=== PATIENT | male | born 1965 | race African-American/Black ===

== ENCOUNTER 2019-07-07 19:35 | Inpatient (IN) | payer OTHER ==
[~2019-07-07] VITALS: Ht 180.3 cm; Wt 82.0 kg
[2019-07-07] MEDS ORDERED: OLAN5TAB2 PO (19:49)
[2019-07-07] MEDS ORDERED: VENL25TA47 PO (19:49)
[2019-07-07] MEDS ORDERED: LITH300C3 PO (19:49)
[2019-07-07] MEDS ORDERED: RANI150T7 PO (19:49)
[2019-07-07] MEDS ORDERED: VENL-68 PO (19:50)
[2019-07-07] MEDS ORDERED: ONDANSETRON HCL 4 MG/2 ML VIAL IVP ONE ×2 (20:45→23:45)
[2019-07-07] MEDS ORDERED: SODIUM CHLORIDE 0.9% 1,000 ML IV ONE ×2 (20:45→23:45)
[2019-07-07 21:35] LABS: BASOPHILS % (AUTO) 0.4 % (0.0-2.0); EOSINOPHILS % (AUTO) 0.3 % (1.0-6.0); HEMATOCRIT 47.3 % (41-53); HEMOGLOBIN 16.4 g/dL (13.5-17.5); LYMPHOCYTES # (AUTO) 1.9 K/uL (1.0-4.8); LYMPHOCYTES % (AUTO) 14.4 % (22.0-44.0); MEAN CORPUSCULAR HEMOGLOBIN 31.1 pg (26.0-34.0); MEAN CORPUSCULAR HGB CONC 34.7 G/dL (31.0-37.0); MEAN CORPUSCULAR VOLUME 90 fL (80-100); MONOCYTES # (AUTO) 1.3 K/uL (0.1-1.0); MONOCYTES % (AUTO) 9.7 % (2.0-9.0); NEUTROPHILS # (AUTO) 9.9 K/uL (1.8-7.7); NEUTROPHILS % (AUTO) 75.2 % (40.0-70.0); PLATELET COUNT (AUTO) 210 K/uL (150-450); RED BLOOD CELL COUNT(AUTO) 5.27 MIL/uL (4.50-5.90); RED CELL DISTRIBUTION WIDTH 13.7 % (11.5-14.5)
[2019-07-07 22:14] LABS: SODIUM SERUM 135 mmol/L (136-145)
[2019-07-07 22:15] LABS: ALANINE AMINOTRANSFERASE 24 U/L (12-78); ALBUMIN 4.6 g/dL (3.4-5.0); ALKALINE PHOSPHATASE 106 U/L (46-116); ANION GAP 14 mmol/L (8-16); ASPARTATE AMINOTRANSFERASE 31 U/L (15-37); BILIRUBIN,TOTAL 1.4 mg/dL (0.1-1.0); CALCIUM, TOTAL 10.4 mg/dL (8.8-10.5); CARBON DIOXIDE 27 mmol/L (22-29); CHLORIDE 94 mmol/L (98-107); CREATINE KINASE, TOTAL ONLY 1140 U/L (39-308); CREATININE 1.42 mg/dL (0.60-1.30); GLOMERULAR FILTR. RATE CALC > 60 mL/min (>60); GLUCOSE,RANDOM 120 mg/dL (70-110); TOTAL PROTEIN, SERUM 7.9 g/dL (6.4-8.2); UREA NITROGEN, BLOOD 21 mg/dL (7-18)
[2019-07-07 22:18] LABS: POTASSIUM 2.8 mmol/L (3.5-5.1)
[2019-07-07] MEDS ORDERED: POTASSIUM CHLORIDE 10% 40 MEQ/30 ML LIQUID UDCUP PO ONE (22:30)
[2019-07-07] MEDS: POTASSIUM CHL 10 MEQ/WATER 50 ML IV SCH ×2 (23:06→23:32)
[2019-07-08 01:20] LABS: AMPHET/METH SCREEN,URINE POSITIVE (NEGATIVE); BARBITURATE SCREEN, URINE NEGATIVE (NEGATIVE); BENZODIAZEPINES SCREEN,URINE NEGATIVE (NEGATIVE); CANNABINOID SCREEN,URINE POSITIVE (NEGATIVE); COCAINE SCREEN,URINE NEGATIVE (NEGATIVE); METHADONE SCREEN, URINE NEGATIVE (NEGATIVE); OPIATE SCREEN,URINE NEGATIVE (NEGATIVE)
[2019-07-08 01:21] LABS: APPEARANCE,URINE CLEAR (CLEAR); BILIRUBIN,URINE NEGATIVE (NEGATIVE); GLUCOSE, URINE (UA) NEGATIVE (NEGATIVE); KETONES,URINE >=80 mg/dL (NEGATIVE); LEUKOCYTE ESTERASE ,URINE NEGATIVE (NEGATIVE); NITRATE,URINE NEGATIVE (NEGATIVE); OCCULT BLOOD,URINE MODERATE (NEGATIVE); PH,URINE 7.5 (5.0-8.0); PROTEIN,URINE POS 1+ (NEGATIVE)
[2019-07-08 01:22] LABS: BACTERIA,URINE None Seen /HPF (None Seen); RBC,URINE 26-50 /HPF (0-2)
[2019-07-08 01:23] LABS: SQUAMOUS EPITHELIAL CELL,UR None Seen /LPF (None Seen)
[2019-07-08 01:24] LABS: PHENCYCLIDINE SCREEN,URINE NEGATIVE (NEGATIVE)
[2019-07-08] MEDS ORDERED: PROCHLORPERAZINE EDISYLATE 5 MG/ML 2 ML VIAL IVP ONE (02:00)
[2019-07-08] MEDS ORDERED: SODIUM CHLORIDE 0.9% 1,000 ML IV ONE ×2 (02:00→05:00)
[2019-07-08] MEDS ORDERED: CloNIDine HCL 0.2 MG TABLET PO ONE ×2 (02:00→05:00)
[2019-07-08] MEDS: POTASSIUM CHL 10 MEQ/WATER 50 ML IV SCH ×2 (02:23→03:19)
[2019-07-08] MEDS ORDERED: LORazepam 2 MG/ML VIAL IVP ONE ×2 (04:00→05:00)
[2019-07-08 04:36] LABS: POTASSIUM 3.3 mmol/L (3.5-5.1)
[2019-07-08 06:00] VITALS: BP 145/85
[2019-07-08] MEDS ORDERED: POTASSIUM CHL 10 MEQ/WATER 50 ML IV PRN (09:45)
[2019-07-08] MEDS ORDERED: POTASSIUM CHLORIDE 20 MEQ ER TABLET PO PRN (09:45)
[2019-07-08] MEDS ORDERED: VENLAFAXINE HCL 150 MG ER CAPSULE PO SCH (10:00)
[2019-07-08] MEDS ORDERED: OLANZapine 5 MG TABLET PO SCH (10:00)
[2019-07-08] MEDS ORDERED: FAMOTIDINE 20 MG TABLET PO SCH (10:00)
[2019-07-08 11:54] VITALS: BP 109/85
[2019-07-08] MEDS ORDERED: LITHIUM CARBONATE 300 MG CAPSULE PO SCH (21:00)
== END 2019-07-08 15:01 | disposition left against medical advice (07) | DRG 812 ==
LOC: EMS 19:35 → 4E 07-08 05:32
PROVIDERS: ADMIT Internal Medicine; ATTEND Internal Medicine
DX: T43.621A Poisoning by amphetamines, accidental (unintentional), initial encounter (principal); M62.82 Rhabdomyolysis; E87.6 Hypokalemia; R42 Dizziness and giddiness; K21.9 Gastro-esophageal reflux disease without esophagitis; F43.10 Post-traumatic stress disorder, unspecified; F17.210 Nicotine dependence, cigarettes, uncomplicated; N20.0 Calculus of kidney; R31.9 Hematuria, unspecified; F32.9 Major depressive disorder, single episode, unspecified; R55 Syncope and collapse; F15.10 Other stimulant abuse, uncomplicated; G47.00 Insomnia, unspecified; I10 Essential (primary) hypertension; X58.XXXA Exposure to other specified factors, initial encounter; Z53.29 Procedure and treatment not carried out because of patient's decision for other reasons; Y92.89 Other specified places as the place of occurrence of the external cause; T40.7X1A Poisoning by cannabis (derivatives), accidental (unintentional), initial encounter
CPT/HCPCS: 74176; 83735; 84132; 93005; 96365; 96375; G0378; G0480; J0780; J2060; J2405; J3480; J7030

== ENCOUNTER 2019-10-28 15:27 | Emergency (ER) | payer OTHER ==
[~2019-10-28] VITALS: Ht 177.8 cm; Wt 75.0 kg
[~2019-10-28 15:27] MED LIST: LITH300C3 PO; QUET300T2 PO; VENL-68 PO
[2019-10-28 15:28] VITALS: BP 122/70
[2019-10-28] MEDS ORDERED: SERTRALINE HCL 100 MG TABLET PO ONE (16:15)
[2019-10-28] MEDS ORDERED: QUEtiapine FUMARATE 100 MG TABLET PO ONE (16:30)
== END 2019-10-28 16:39 | disposition home or self-care (01) ==
LOC: EMS 15:28
DX: F20.9 Schizophrenia, unspecified (principal); F17.210 Nicotine dependence, cigarettes, uncomplicated; F32.9 Major depressive disorder, single episode, unspecified; K21.9 Gastro-esophageal reflux disease without esophagitis; F19.90 Other psychoactive substance use, unspecified, uncomplicated
CPT/HCPCS: 99406